=== PATIENT | male | born 1955 | race Caucasian/White ===

== ENCOUNTER → 2017-07-11 | Outpatient (CLI) | payer OTHER ==
[~2017-07-11] MED LIST: ACTIFED PO; CARAFATE 11 GM/10 M1 PO; DIOVAN; HCTZ; OMEPRAZOLE
== END ==
LOC: MRI 07-02 08:33
DX: M54.5 Low back pain (principal)

== ENCOUNTER → 2017-12-17 | Outpatient (CLI) | payer OTHER ==
[~2017-12-17] VITALS: Ht 188 cm; Wt 72.6 kg
[~2017-12-17] MED LIST changes: +ADVAIR HFA 230M12 GM INH; +FLOMAX0.4 MG PO
--- NOTE | ~2017-12-17 | HPC ---
[facility] [address] [place] [address] PAIN MANAGEMENT CONSULTATION Name: JOSEPH VILLANUEVA Room #: REG [facility] Nela.#: [id number] Admission: 12/17/17 Attend Phys: Mahesh Kahn DO Discharge: Date of : 53 Report #: [id number] THIS REPORT FOR: //name// CC: Temo Kahn PAIN CLINIC CONSULTATION The patient is a pleasant 62-year-old seen in consultation at the request of Dr. Caputo for evaluation of pain in the low back, radiating down the right greater than left leg, lateral leg down to the great toe. The patient notes the pain has been present for 2 years. Denies antecedent trauma and overuse. He did have similar symptoms back in 2010, well treated with epidural injection x 3 at that time. The patient incidentally notes that he had had some chronic axial back and lumbar radicular pain treated with decompressive laminectomy in 2008, had 50-60% improvement of pain, but still had some sensation loss in his toes. Currently, notes the pain is exacerbated with standing or walking anywhere from 5-15 minutes, though if he rests for 5 minutes, symptoms will resolve. Appears to be somewhat of a neurogenic claudication type presentation. Describes aching pain that he struggles to score on a visual analog scale. Denies any weakness. He does have paresthesia, which is chronic. Denies bowel or bladder continence changes. Notes, he takes ibuprofen with some efficacy. REVIEW OF SYSTEMS: Complete review of systems was attached to the chart and was gone over with the patient. He is . He smokes, which he has for 45 years. He is aware that this is associated with axial back pain. Has COPD for which he uses Advair. Hypertension, treated with . States he had bladder cancer and during the BCG treatments, which were instilled in the bladder via a Johnson catheter, he states that he had trauma to his sphincter and now he has to take tamsulosin for sphincter spasm. Remaining review of systems is noncontributory (negative). 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 PHYSICAL EXAMINATION: Reveals a 6 feet 2 inches, 160-170 pounds gentleman in no acute distress at present. BMI is 20.5 kilograms per meter squared. Vital signs stable as noted in the EMR. Subjective pain score is 5-6 on a VAS at present. Cranial nerves 2-12 grossly intact. Pupils equal and reactive to light and accommodation. Extraocular muscles are intact. Cervical range of motion is full. Thyroid is unremarkable. Upper extremity strength is preserved. Heart is regular and rhythmical without murmur. Lungs are generally clear. He is relatively thin build and again BMI is about 20 kilograms per meter squared. Rises from the chair easily. Gait is tandem. Lower extremity strength is generally preserved. Patellar and Achilles reflexes are preserved, 2/4 and 0-1/4 respectively. Straight leg raise is nominally positive [address] [address] PAIN MANAGEMENT CONSULTATION Name: JOSEPH VILLANUEVA Room #: REG DUNIA Laughlin#: [id number] Admission: 12/17/17 Attend Phys: Mahesh Kahn DO Discharge: Date of : 53 Report #: [id number] bilaterally. We reviewed diagnostic findings including MRI of the lumbar spine from 07/11/2017. This was compared to prior study from 2014, which is essentially unchanged. Does show mild retrolisthesis of L5 on S1 with some disk bulging at this level. There are unchanged facet changes at L2-L3 through L4-L5. The L5-S1 anterolisthesis is 6.9 mm. I personally pulled the images up on the computer in the room and reviewed the patient's anatomic findings with the patient today. Given neurogenic claudication symptoms, prior excellent relief with epidural injections x 3 in 2010, radicular symptoms with positive neural tensioning symptoms bilaterally and compatible findings of neural foraminal narrowing at L5-S1, we will seek authorization for epidural injection under fluoroscopy at next visit. We will continue [id number] ibuprofen. Thank you for allowing me to participate in the patient's care. I will keep you abreast of his progress. By: [id number] Mahesh Kahn DO /nt
[2017-12-17 13:22] VITALS: BP 132/82
== END ==
LOC: PAIN 07:23
DX: M54.16 Radiculopathy, lumbar region (principal); M96.1 Postlaminectomy syndrome, not elsewhere classified

== ENCOUNTER → 2018-01-07 | Outpatient (CLI) | payer OTHER ==
[~2018-01-07] VITALS: Ht 188 cm; Wt 70.5 kg
[~2018-01-07] MED LIST changes: +VALSARTAN-HCTZ1 EAC2 PO
--- NOTE | ~2018-01-07 | HPC ---
[facility] [place] [address] PAIN MANAGEMENT CONSULTATION Name: JOSEPH VILLANUEVA Room #: REG [facility] Nela.#: [id number] Admission: 01/07/18 Attend Phys: Mahesh Kahn DO Discharge: Date of : 53 Report #: [id number] THIS REPORT FOR: //name// CC: Temo Kahn The patient is a 62-year-old gentleman, prior seen back in 2010 for symptomatic lumbar radiculopathy, series of three epidural injections afforded dramatic relief. He was seen as a new consult for 10/2017. We progressed with one epidural injection at L4-L5 at last visit. The patient is status post lumbar decompressive laminectomy, some ongoing spondylolisthesis at L5-S1. Returns to pain clinic noting he had incremental relief following injection. Notes his pain is 0 today, but when he wears his work uniform which includes a gun belt, he has axial back pain. He works 12 hour shifts (3 a week). PHYSICAL EXAMINATION: Shows 62-year-old gentleman, BMI is 19.9 kilograms per meter squared. Vital signs are stable as noted in the EMR. Rises from chair using armrest. Gait is tandem. Passive rotation of the hips is unremarkable. Has pain in the low back, radiating into the groin and down the bilateral legs. Lower extremity strength is symmetric and positive straight leg raise bilaterally. I reviewed his MRI from 07/11/2017, which notes a retrolisthesis of L5 on S1. Degenerative facet changes with bilateral neural foraminal narrowing. ASSESSMENT: Symptomatic lumbar radiculopathy, status post decompressive laminectomy. RECOMMENDATION: Repeat epidural injection under fluoroscopy today, we will use in L5-S1 approach. Follow up in 3 weeks for reevaluation. If symptoms continue, may consider a third injection if indicated clinically. PROCEDURE: Lumbar epidural injection under fluoroscopy. PROCEDURE NOTE: After both written and informed consent to include risk of spinal cord damage, increased pain, weakness and dural puncture, the patient was taken to the fluoroscopy suite, placed in the prone position. After sterile prep and drape, a skin wheal with lidocaine was raised. A 22-gauge epidural Tuohy needle was inserted in the midline at L5-S1 with good loss to resistance. Negative aspiration for cerebrospinal fluid or blood was noted. Then 1 mL of Omnipaque under biplanar fluoroscopy showed good spread within the epidural space. This was followed with 80 mg of triamcinolone plus 1 mL of 1.5% preservative-free Xylocaine, 0.5 mL Xylocaine was then injected to flush the [address] [address] PAIN MANAGEMENT CONSULTATION Name: JOSEPH VILLANUEVA Room #: REG [facility] Truman#: [id number] Admission: 01/07/18 Attend Phys: Mahesh Kahn DO Discharge: Date of : 53 Report #: [id number] needle; it was removed. The patient was monitored for an appropriate period of time and discharged in good and stable condition. <ELECTRONICALLY SIGNED> By: Mahesh Kahn DO 01/10/18 0927 1206 1501 Mahesh Kahn DO /nt
[2018-01-07 10:29] VITALS: BP 132/71
== END | disposition home or self-care (01) ==
LOC: PAIN 06:49
DX: M54.16 Radiculopathy, lumbar region (principal); G89.29 Other chronic pain; F17.210 Nicotine dependence, cigarettes, uncomplicated; Z79.899 Other long term (current) drug therapy; Z98.890 Other specified postprocedural states

== ENCOUNTER → 2018-02-18 | Outpatient (CLI) | payer OTHER ==
[~2018-02-18] VITALS: Ht 188 cm; Wt 67.9 kg
[~2018-02-18] MED LIST changes: +ALBUTEROL2.5 MG/0.1 INH
--- NOTE | ~2018-02-18 | HPC ---
[address] [place] [address] PAIN MANAGEMENT CONSULTATION Name: VILLANUEVAJOSEPH STEVE Room #: REG [facility] Nela.#: [id number] Admission: 02/18/18 Attend Phys: Mahesh Kahn DO Discharge: Date of : 53 Report #: [id number] THIS REPORT FOR: //name// CC: Temo Kahn DATE OF SERVICE: 02/18/2018 The patient is a 62-year-old gentleman being treated for symptomatic lumbar radiculopathy status post decompressive laminectomy. He was originally seen in consultation 12/17/2017. Having pain, bilateral legs, right greater than left, component of neurogenic claudication. Did well with prior epidural injections back in 2010. He had a lumbar decompressive laminectomy in 2008. MRI from 07/11/2017 had noted retrolisthesis at L5-S1, facet changes L2-L3 through L4-L5, anterolisthesis at L5-S1, about 6.9 mm. We progressed to perform a lumbar epidural injection 12/24/2017 at L4-L5 with incremental improvement in baseline pain. On 01/07/2018 still had ongoing pain, repeated the injection. His pain was more in the posterior aspect of his legs. I performed an L5-S1 facet joint injection, which unfortunately really afforded no relief. Returns to pain clinic today noting again the first injection had afforded some relief; however, still notes his pain is exacerbated with standing, walking and bending. He states if he walks or stands for any period of time, pain becomes problematic. He almost has what sounds like a neurogenic claudication. PHYSICAL EXAMINATION: Shows a 62-year-old gentleman, BMI is a little low at 19.2 kilograms per meter squared. Blood pressure 157/81, pulse 70, respirations 16. He continues to smoke, which he has for 45 years. Rises from chair using armrest. Gait is generally tandem, has diffuse tenderness across the low back. Lower extremity strength is preserved. Positive straight leg raise bilateral. MRI as discussed above. ASSESSMENT: Symptomatic lumbar radiculopathy status post decompressive laminectomy. RECOMMENDATION: Long discussion with the patient today. We have elected to repeat epidural injection at the initial site, L4-L5 today, continue activity as able, continue Aleve [id number]-[id number] b.i.d. and follow up with Dr. Rex Fields's office for consideration for more definitive intervention if needed for neurogenic claudication type symptoms. May be a component of vascular claudication, though I can detect faint pulses in the posterior tibial, bilateral. [address] [address] PAIN MANAGEMENT CONSULTATION Name: JOSEPH VILLANUEVA Room #: REG CLAime Laughlin#: [id number] Admission: 02/18/18 Attend Phys: Mahesh Kahn DO Discharge: Date of : 53 Report #: [id number] ASSESSMENT: Symptomatic lumbar radiculopathy secondary to spinal stenosis. PROCEDURE: Lumbar epidural injection under fluoroscopy. PROCEDURE NOTE: After both written and informed consent to include risk of spinal cord damage, increased pain, weakness and dural puncture, the patient was taken to the fluoroscopy suite, placed in the prone position. After sterile prep and drape, a skin wheal with lidocaine was raised. A 22-gauge epidural Tuohy needle was inserted in the midline at L4-L5 with good loss to resistance. Negative aspiration for cerebrospinal fluid or blood was noted. Then 1 mL of Omnipaque under biplanar fluoroscopy showed good spread within the epidural space. This was followed with 80 mg of triamcinolone plus 1 mL of 1.5% preservative-free Xylocaine, 0.5 mL Xylocaine was then injected to flush the needle; it was removed. The patient was monitored for an appropriate period of time and discharged in good and stable condition. <ELECTRONICALLY SIGNED> By: Mahesh Kahn DO 02/20/18 0740 1052 1427 Mahesh Kahn DO /nt
[2018-02-18 09:23] VITALS: BP 157/81
== END | disposition home or self-care (01) ==
LOC: PAIN 01-28 07:11
DX: M54.16 Radiculopathy, lumbar region (principal); G89.29 Other chronic pain; M48.061 Spinal stenosis, lumbar region without neurogenic claudication; F17.210 Nicotine dependence, cigarettes, uncomplicated; Z98.890 Other specified postprocedural states; Z79.899 Other long term (current) drug therapy

== ENCOUNTER → 2019-01-30 | Outpatient (CLI) | payer OTHER ==
[~2019-01-30] MED LIST changes: +CELEBREX 200 M200 MG PO; +HYDROCHLOROTHIA25 M2 PO; +TOPROL XL50 MG PO
== END ==
LOC: ULTRA 09:59
DX: I71.4 Abdominal aortic aneurysm, without rupture (principal); N28.9 Disorder of kidney and ureter, unspecified; I70.0 Atherosclerosis of aorta; Z90.49 Acquired absence of other specified parts of digestive tract

== ENCOUNTER → 2019-10-22 | Outpatient (CLI) | payer OTHER | END | disposition home or self-care (01) | LOC: SJCVCIMAG 08:11 | DX: I71.4 Abdominal aortic aneurysm, without rupture (principal); I10 Essential (primary) hypertension; E78.5 Hyperlipidemia, unspecified; I65.23 Occlusion and stenosis of bilateral carotid arteries; Z90.49 Acquired absence of other specified parts of digestive tract; Z82.49 Family history of ischemic heart disease and other diseases of the circulatory system; F17.210 Nicotine dependence, cigarettes, uncomplicated; Z79.899 Other long term (current) drug therapy ==

== ENCOUNTER → 2020-04-26 | Outpatient (CLI) | payer OTHER | LOC: SJCVC 09:42 | PROVIDERS: ATTEND Internal Medicine | DX: R94.31 Abnormal electrocardiogram [ECG] [EKG] (principal); I71.4 Abdominal aortic aneurysm, without rupture; I10 Essential (primary) hypertension; E78.5 Hyperlipidemia, unspecified; I65.23 Occlusion and stenosis of bilateral carotid arteries ==

== ENCOUNTER → 2020-12-01 | Outpatient (CLI) | payer OTHER | LOC: SJCVCIMAG 10-28 09:06 | PROVIDERS: ATTEND Internal Medicine | DX: R94.31 Abnormal electrocardiogram [ECG] [EKG] (principal); I71.4 Abdominal aortic aneurysm, without rupture; I77.1 Stricture of artery; I65.23 Occlusion and stenosis of bilateral carotid arteries; I10 Essential (primary) hypertension; E78.5 Hyperlipidemia, unspecified; I73.9 Peripheral vascular disease, unspecified; F17.210 Nicotine dependence, cigarettes, uncomplicated; Z72.89 Other problems related to lifestyle; Z79.899 Other long term (current) drug therapy; Z88.1 Allergy status to other antibiotic agents; Z88.5 Allergy status to narcotic agent ==

== ENCOUNTER 2021-02-27 21:27 | Inpatient (IN) | payer OTHER ==
[~2021-02-27] VITALS: Ht 188 cm; Wt 68.9 kg
[2021-02-27 21:44] VITALS: BP 78/55
[2021-02-27 22:15] LABS: ABSOLUTE NEUTROPHILS 10.2 thou/uL (1.4-8.2); BASOPHILS 0.6 % (0.0-2.0); HEMATOCRIT 43.6 % (42.0-52.0); HEMOGLOBIN 14.6 gm/dL (14.0-18.0); LYMPHOCYTES 12.6 % (24.0-44.0); MCH 31.4 pg (26.0-34.0); MCHC 33.5 g/dL (28.0-37.0); MCV 93.7 fL (80.0-100.0); MONOCYTES 7.8 % (1.0-8.0); PLATELET COUNT 304 thou/uL (150-400); RBC 4.65 mil/uL (4.50-6.00); WBC 13.4 thou/uL (4.0-11.0)
[2021-02-27 22:35] LABS: CALCIUM 9.2 mg/dL (8.5-10.1); CREATININE 3.8 mg/dL (0.7-1.3); DIRECT BILIRUBIN 0.2 mg/dL (<0.1-0.2); TOTAL BILIRUBIN 0.5 mg/dL (0.2-1.0)
[2021-02-27 22:39] LABS: POTASSIUM 2.4 mmol/L (3.5-5.1)
[2021-02-27 23:21] LABS: URINE BILIRUBIN NEGATIVE (Negative); URINE BLOOD 2+ (Negative); URINE CLARITY CLOUDY; URINE COLOR YELLOW; URINE GLUCOSE-RANDOM* NEGATIVE (Negative); URINE KETONES NEGATIVE (Negative); URINE PROTEIN (DIPSTICK) 2+ (Negative); URINE UROBILINOGEN 0.2 E.U./dl (0.2-1.0)
[2021-02-27 23:33] LABS: URINE LEUKOCYTES-REFLEX 3+ (Negative); URINE NITRITE-REFLEX POSITIVE (Negative)
[2021-02-27 23:44] LABS: BACTERIA-REFLEX >30 Many /HPF (None Seen); CASTS None Seen /LPF (None Seen); CRYSTALS None Seen /LPF (None Seen); MUCUS 0-3 Light strn/LPF (None Seen); SQUAMOUS None Seen /LPF (0-3); URINE RBC >20 Many /HPF (NONE SEEN); URINE WBC-REFLEX >25 Many /HPF (0-5)
[2021-02-27] MEDS ORDERED: FLOVENT DISKU100 MCG INH (23:44)
[2021-02-27] MEDS ORDERED: LIPITOR 40 MG T40 M1 PO (23:44)
[2021-02-27] MEDS ORDERED: ONDANSETRON HCL4 M3 PO (23:45)
[2021-02-27] MEDS ORDERED: DIOVAN HCT 1601 EAC1 PO (23:45)
[2021-02-27] MEDS ORDERED: TAMSULOSIN HCL0.4 MG PO (23:45)
[2021-02-27] MEDS ORDERED: PROTONIX40 M2 PO (23:45)
[2021-02-28] VITALS (9 sets, daily range): BP systolic 94–140; BP diastolic 52–74
[2021-02-28 05:47] LABS: CALCIUM 8.8 mg/dL (8.5-10.1); CREATININE 3.4 mg/dL (0.7-1.3)
[2021-02-28 05:50] LABS: POTASSIUM 2.8 mmol/L (3.5-5.1)
--- NOTE | 2021-02-28 07:24 | EKG ---
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 : 1955 Requested By: Anil Esposito Order Number: [id number] MD: Brandon Ayala Measurements Intervals [place] Rate: 55 P: 45 WY: 114 QRS: 47 QRSD: 101 T: 59 QT: 442 QTc: 423 Interpretive Statements Sinus rhythm Borderline short [place] interval Anterior infarct, old Compared to ECG 03/20/2010 00:50:17 Myocardial infarct finding now present Prolonged QT interval no longer present Electronically Signed On 02-28-2021 7:24:09 CDT by Brandon Ayala [email or web address] <ELECTRONICALLY SIGNED> By: Brandon Ayala MD, [facility] 02/28/21 0724 2325 2325 Brandon Ayala MD, [facility] /EPI
--- NOTE | 2021-02-28 07:48 | NUR ---
PT ADMITTED [facility] FOR ACUTE RENAL FAILURE,DEHYDRATION, HYPOKALEMIA, AND UTI. VSS AFEBRILE. 96% ON RA. DENIED PAIN. PT STATED HE INTERMITTENTLY HAS NUMBNESS AND TINGLING TO LLE DUE TO SPINAL SURGERY HE HAD TO REMOVE A CYST. TIPS OF TOES TO LLE ARE SLIGHTLY DISCOLORED. PULSES AR DIFFICULT TO PALPATE. I LEFT SCDS OFF UNTIL DR NAIK EVALUAE WHETHER PT IS ALLOWED TO HAVE THEM OR NOT. PT ALSO SAID THEY WOULD KEEP HIM AWAKE. PO KLC GIVEN ORDERED FOR K 2.8 THIS AM. NS WITH 20 KCL INFUSING AT 100 ML /HR. SBP HAS IMPROVED TONIGHT INTO 130S-140S TONIGHT. NO C/O PAIN TONIGHT. NO S/S DISTRESS. EXPLAINED FALL PRECAUTIONS TO PT AND HE VERBALIZED UNDERSTANDING.
--- NOTE | 2021-02-28 09:29 | NUR ---
cm completed the initial assessment. pt aaox4. pt lives at home with spouse. pt independent with adls. pt has no hx with hh or snf. pt pt has no hx with dialysis. pt stated, "i dont like hospital" and expressed he is eager to leave. pt pcp is dr. anne. pt is refusing hh at this time. cm to cont to follow.
[2021-02-28 15:24] LABS: CALCIUM 8.3 mg/dL (8.5-10.1); CREATININE 2.6 mg/dL (0.7-1.3); POTASSIUM 3.2 mmol/L (3.5-5.1)
[2021-03-01 03:23] VITALS: BP 117/69
--- NOTE | 2021-03-01 04:28 | NUR ---
Patient making progress towards outcome goals. Vital signs and rhythm stable. IVfluids with potassium infusing. High fall reisks, fall precautions in place.
[2021-03-01 05:29] LABS: HEMATOCRIT 36.4 % (42.0-52.0); MCH 31.5 pg (26.0-34.0); MCV 92.8 fL (80.0-100.0); RBC 3.92 mil/uL (4.50-6.00); RDW 13.6 % (10.5-14.5); WBC 12.6 thou/uL (4.0-11.0)
[2021-03-01 05:42] LABS: HEMOGLOBIN 12.4 gm/dL (14.0-18.0)
[2021-03-01 05:49] LABS: CALCIUM 8.6 mg/dL (8.5-10.1); CREATININE 1.9 mg/dL (0.7-1.3); POTASSIUM 3.2 mmol/L (3.5-5.1)
[2021-03-01 07:48] VITALS: BP 131/68
[2021-03-01 15:45] VITALS: BP 159/81
--- NOTE | 2021-03-01 16:54 | NUR ---
PT HAS BEEN INCREASING AMBULATION THIS SHIFT, PT HAS BEEN ABLE TO WALK STANDBY ASSIST AROUND UNIT. PT HAS SHOWN NO FURTHER WEAKNESS OR UNSTEADY GAIT, USES CALL LIGHT APPROPRIATELY, IS APPROPRIATE FOR LOW FALL RISK. ORIGINAL IV INFILTRATED, NEW IV STARTED IN R FOREARM. PT STATED MULTIPLE TIMES HE IS READY TO DC TO HOME.
[2021-03-01 19:30] VITALS: BP 150/80
[2021-03-02 04:30] VITALS: BP 170/94
[2021-03-02 05:16] LABS: HEMATOCRIT 34.9 % (42.0-52.0); MCHC 34.3 g/dL (28.0-37.0); MCV 93.3 fL (80.0-100.0); RBC 3.74 mil/uL (4.50-6.00); RDW 13.8 % (10.5-14.5); WBC 10.3 thou/uL (4.0-11.0)
[2021-03-02 05:48] VITALS: BP 159/84
--- NOTE | 2021-03-02 05:49 | NUR ---
Pt. refused to take scheduled melatonin last night. He stated he wanted to try to sleep on his own without it. He slept few hours last night. Up ad rosangela in room with steady gait.Concern about restarting his BP med and flomax today. He will speak with Dr. Caputo this am when he rounds. Tolearting room air well and he has been afebrile. Progressing towards discharge goals.
[2021-03-02 06:05] LABS: CALCIUM 8.4 mg/dL (8.5-10.1); CREATININE 1.4 mg/dL (0.7-1.3)
[2021-03-02] MEDS ORDERED: CEFDINIR300 MG PO (07:34)
[2021-03-02 09:05] VITALS: BP 154/84
[2021-03-02 10:14] VITALS: BP 154/84
[2021-03-02 10:42] VITALS: BP 154/84
[2021-03-02 10:44] VITALS: BP 154/84
== END 2021-03-02 10:48 | disposition home or self-care (01) | DRG 689 ==
LOC: ER 21:27 → 3W 02-28 00:48 → EROBS 02-28 00:48 → 3W 02-28 01:26
PROVIDERS: Emergency Medicine; ADMIT Family Medicine; ATTEND Family Medicine
DX: N30.01 Acute cystitis with hematuria (principal); N17.0 Acute kidney failure with tubular necrosis; I10 Essential (primary) hypertension; J44.9 Chronic obstructive pulmonary disease, unspecified; E87.6 Hypokalemia; F17.210 Nicotine dependence, cigarettes, uncomplicated; B96.20 Unspecified Escherichia coli [E. coli] as the cause of diseases classified elsewhere; K59.00 Constipation, unspecified; G47.00 Insomnia, unspecified; Z20.822 Contact with and (suspected) exposure to COVID-19; Z85.51 Personal history of malignant neoplasm of bladder; Z90.49 Acquired absence of other specified parts of digestive tract; Z79.899 Other long term (current) drug therapy
CPT/HCPCS: 10879

== ENCOUNTER → 2021-06-08 | Outpatient (CLI) | payer OTHER ==
[~2021-06-08] MED LIST changes: +CEFDINIR300 MG PO; +DIOVAN HCT 1601 EAC1 PO; +FLOVENT DISKU100 MCG INH; +LIPITOR 40 MG T40 M1 PO; +ONDANSETRON HCL4 M3 PO; +PROTONIX40 M2 PO; +TAMSULOSIN HCL0.4 MG PO
== END ==
LOC: SJCVCIMAG 08:04
PROVIDERS: ATTEND Internal Medicine
DX: I25.89 Other forms of chronic ischemic heart disease (principal); I73.9 Peripheral vascular disease, unspecified; I77.9 Disorder of arteries and arterioles, unspecified; I71.4 Abdominal aortic aneurysm, without rupture; J44.1 Chronic obstructive pulmonary disease with (acute) exacerbation; I10 Essential (primary) hypertension; E78.5 Hyperlipidemia, unspecified; F17.210 Nicotine dependence, cigarettes, uncomplicated; Z72.89 Other problems related to lifestyle; Z88.1 Allergy status to other antibiotic agents; Z79.899 Other long term (current) drug therapy

== ENCOUNTER → 2021-06-21 | Outpatient (CLI) | payer OTHER ==
[~2021-06-21] VITALS: Ht 182.9 cm; Wt 74.0 kg
[~2021-06-21] MED LIST changes: +PLAVIX 75 MG TA75 MG PO; +PROAIR HFA8.5 GM INH; +VAZALORE81 MG PO
[2021-06-21 07:32] LABS: HEMATOCRIT 45.2 % (42.0-52.0); HEMOGLOBIN 15.1 gm/dL (14.0-18.0); MCH 32.3 pg (26.0-34.0); MCHC 33.5 g/dL (28.0-37.0); MCV 96.4 fL (80.0-100.0); RBC 4.68 mil/uL (4.50-6.00); RDW 14.2 % (10.5-14.5); WBC 7.9 thou/uL (4.0-11.0)
[2021-06-21 07:34] LABS: CALCIUM 8.7 mg/dL (8.5-10.1); CREATININE 1.9 mg/dL (0.7-1.3); POTASSIUM 3.6 mmol/L (3.5-5.1)
[2021-06-21 07:40] VITALS: BP 166/74
== END | disposition home or self-care (01) ==
LOC: CATH 06:44
PROVIDERS: ATTEND Nuclear Medicine Nuclear Cardiology
DX: I70.248 Atherosclerosis of native arteries of left leg with ulceration of other part of lower leg (principal); L97.929 Non-pressure chronic ulcer of unspecified part of left lower leg with unspecified severity; I15.0 Renovascular hypertension; I70.1 Atherosclerosis of renal artery; N28.9 Disorder of kidney and ureter, unspecified; Z98.890 Other specified postprocedural states; Z79.899 Other long term (current) drug therapy

== ENCOUNTER → 2021-07-04 | Outpatient (CLI) | payer OTHER ==
[~2021-07-04] VITALS: Ht 188 cm; Wt 77.3 kg
[2021-07-04 07:33] VITALS: BP 196/88
[2021-07-04 07:45] LABS: CALCIUM 8.7 mg/dL (8.5-10.1); CREATININE 1.8 mg/dL (0.7-1.3); POTASSIUM 3.5 mmol/L (3.5-5.1)
== END | disposition home or self-care (01) ==
LOC: CATH 06:45
PROVIDERS: ATTEND Nuclear Medicine Nuclear Cardiology
DX: I70.213 Atherosclerosis of native arteries of extremities with intermittent claudication, bilateral legs (principal); I70.1 Atherosclerosis of renal artery; M79.604 Pain in right leg; M79.605 Pain in left leg; I10 Essential (primary) hypertension; J44.9 Chronic obstructive pulmonary disease, unspecified; E78.5 Hyperlipidemia, unspecified; F17.210 Nicotine dependence, cigarettes, uncomplicated; Z98.890 Other specified postprocedural states; Z79.899 Other long term (current) drug therapy; Z85.51 Personal history of malignant neoplasm of bladder; Z88.8 Allergy status to other drugs, medicaments and biological substances

== ENCOUNTER → 2021-11-07 | Outpatient (CLI) | payer OTHER | LOC: SJCVCIMAG 10-19 15:45 | PROVIDERS: ATTEND Nuclear Medicine Nuclear Cardiology | DX: I70.202 Unspecified atherosclerosis of native arteries of extremities, left leg (principal); I77.9 Disorder of arteries and arterioles, unspecified; I71.4 Abdominal aortic aneurysm, without rupture; J44.9 Chronic obstructive pulmonary disease, unspecified; I65.23 Occlusion and stenosis of bilateral carotid arteries; E78.5 Hyperlipidemia, unspecified; F17.210 Nicotine dependence, cigarettes, uncomplicated; Z95.828 Presence of other vascular implants and grafts; Z79.82 Long term (current) use of aspirin; Z79.899 Other long term (current) drug therapy; Z88.1 Allergy status to other antibiotic agents ==